=== PATIENT | male | born 2000 | race Caucasian/White ===

== ENCOUNTER 2020-11-20 15:26 | Emergency (ER) | payer SELFPAY ==
[2020-11-20 15:30] VITALS: BP 119/77; PULSE 66; RESP 20; TEMP 36.4; O2SAT 98
--- NOTE | 2020-11-20 16:23 | PC.NURSE ---
Ambulatory out of dept with steady gait. Left without being seen. States he is feeling better.
== END 2020-11-20 16:23 | disposition left against medical advice (07) ==
LOC: ANHED 16:36
DX: F41.9 Anxiety disorder, unspecified (principal)
CPT/HCPCS: 99199

== ENCOUNTER 2021-08-22 14:09 | Emergency (ER) | payer MEDICAID, SELFPAY ==
--- NOTE | ~2021-08-22 | CT_ITS ---
EXAMINATION: CT abdomen pelvis wo con DATE: 08/22/2021 15:01 INDICATION: Nausea and vomiting. Mid abdominal pain. TECHNIQUE: Computed tomography (CT) of the abdomen and pelvis was performed without intravenous contr ast. Automated exposure control and iterative reconstruction technique were employed. The dose-length product was 454.55 mGy-cm. COMPARISON: None. FINDINGS: The visualized portions of the lung bases are clear without pneumonia or pleural effusion. The heart size is normal. No pericardial effusion. The liver, gallbladder, spleen, pancreas, adrenal glands, and kidneys are normal. There is a urolithiasis. There are changes of appendectomy. There is a small bowel intussusception in the midabdomen, likely transient. There are no dilated loops of nora l. There are no pathologically enlarged lymph nodes. There is no free intraperitoneal fluid. The bone s are unremarkable. IMPRESSION: 1. Small bowel intussusception, likely transient. Reviewed, dictated and finalized at location A.
[2021-08-22 14:13] VITALS: BP 168/99; PULSE 66; RESP 14; TEMP 36.6; O2SAT 100
--- NOTE | 2021-08-22 14:49 | ED.ABDPAIN ---
HPI - Abdominal Pain General Chief Complaint: Anxiety Stated Complaint: anxiety attack Time Seen by Provider: 08/22/21 14:13 Source: patient and RN notes reviewed Mode of arrival: ambulatory Limitations: no limitations History of Present Illness MD elicited complaint: other (dry heaves and small amts of emesis.) Pertinent past history: other (untreated anxiety and occasional cyclic vomiting.) Onset (ago): day(s) (1) Pain Consistency: other (pain-free in the ED) Severity: mild Pain scale (0-10): 0 Radiation: none Migration to: no migration Exacerbating factors: nothing Relieving factors: nothing Associated symptoms: nausea and vomiting Treatments prior to arrival: other ([facility] ED meds early am 08/22/2021.) Related Data Home Medications Medication Instructions Recorded Confirmed ondansetron 4 mg disintegrating 4 tablet PO PRN PRN Nausea 08/22/21 08/22/21 tablet pantoprazole 40 mg tablet,delayed 40 tablet PO DAILY 08/22/21 08/22/21 release promethazine 25 mg rectal 25 supp RECTAL PRN PRN Nausea 08/22/21 08/22/21 suppository (Promethegan) sertraline 100 mg tablet 100 tablet PO DAILY 08/22/21 08/22/21 Allergies Allergy/AdvReac Type Severity Reaction Status Date / Time No Known Allergies Allergy Verified 08/22/21 14:23 Review of Systems Review of Systems: All systems reviewed & are unremarkable except as noted in HPI and below Constitutional: Constitutional: Reports no additional constitutional complaints Eyes: Eyes: Reports no additional eye complaints ENT: Reports system reviewed and no additional complaints, except as documented Cardiovascular: Cardiovascular: Reports no additional cardiovascular complaints Respiratory: Respiratory: Reports no additional respiratory complaints Gastrointestinal: Gastrointestinal: Denies no additional gastrointestinal complaints, Reports nausea and Reports vomiting Musculoskeletal: Musculoskeletal: Reports no additional musculoskeletal complaints Integumentary/Breasts: Skin/Breast: Reports system reviewed and no additional complaints, except as docu Neurologic: Reports system reviewed and no additional complaints, except as documented Psychiatric: Psychiatric: Reports no additional psychiatric complaints Endocrine: Endocrine: Reports no additional endocrine complaints Hematologic/Lymphatic: Hematologic/Lymphatic: Reports no additional hematologic/lymphatic complaints Allergic/Immunologic: Allergic/Immunologic: Reports no additional allergic/immunologic complaints PMFSH Past Medical History Medical History Abdominal pain Anxiety Marijuana use Social History Social History Substance use type: marijuana Exam Const: General: healthy appearing and no acute distress Nutritional Appearance: well nourished Orientation/consciousness: patient oriented x3 Limitations: no limitations Other: mild voluntary coarse tremors. HENMT: Head: normal to inspection Ears: external ears normal, TM's normal bilaterally and EAC's normal General nose exam: Normal external nose present and Normal nares present Face and sinus: normal facial exam and sinuses nontender Mouth: Yes Normal oral and palatal mucosa present and Yes moist mucous membranes Teeth and gingiva: dentition normal Throat: posterior oropharynx normal Eyes: Conjunctivae: conjunctivae normal Pupils: Equal, round and reactive pupils present EOM: EOMs intact bilaterally Neck: Neck: normal visual inspection, no lymphadenopathy and no meningeal signs Chest: Chest palpation & inspection: normal inspection of the chest Resp: Effort & Inspection: normal respiratory effort Auscultation: clear to auscultation bilaterally Cardio: Rate: regular rate Rhythm: regular rhythm GI: GI Palp: Yes Soft to palpation and No Tenderness to palpation present (GI) Auscultation: normal bowel sounds : General: Yes bladder normal to palpation and Yes no CVA tenderness Back/Spine/Pelvis: Back: no
[2021-08-22] MEDS: SODIUM CHLORIDE 0.9% IV 1,000 ML 999 ML IV CONT (15:03)
[2021-08-22] MEDS: ONDANSETRON INJ 4 MG/2 ML VIAL IV PUSH (15:03)
[2021-08-22] MEDS: PANTOPRAZOLE SODIUM IV 40 MG VIAL IV PUSH (15:04)
[2021-08-22 15:07] LABS: Basophils Absolute Auto 0.04 K/mm3 (0.00-0.10); Basophils Percent Auto 0.3 % (0.0-1.0); Hematocrit 42.4 % (40.0-54.0); Hemoglobin 14.6 g/dL (14.0-18.0); Immature Granulocyte Absolute 0.05 K/mm3 (0.00-0.00); Immature Granulocyte Percent A 0.4 % (0.0-0.0); Lymphocytes Absolute Auto 1.69 K/mm3 (1.10-4.50); Lymphocytes Percent Auto 12.1 % (18.0-42.0); Mean Corpuscular HGB Conc 34.4 g/dL (32.0-36.0); Mean Corpuscular Hemoglobin 30.3 pg (27.0-31.0); Mean Platelet Volume 10.2 fl (8.7-11.0); Monocytes Percent Auto 7.9 % (2.0-11.0); Neutrophils Percent Auto 79.3 % (50.0-70.0); Platelet Count Result 294 K/mm3 (150-420); Red Blood Count 4.82 M/mm3 (4.70-6.10); Red Cell Distribution Width 12.3 % (11.6-14.4); White Blood Count 13.9 K/mm3 (4.8-10.8)
[2021-08-22 15:09] LABS: Add Urine Microscopic? YES; Appearance Urine Clear (Clear); Bilirubin Urine Negative (Negative); Blood Urine Trace-Intact (Negative); Color Urine Yellow (Yellow); Glucose Urine UA Negative (Negative); Ketones Urine 3+ (Negative); Leukocyte Esterase Ur Negative (Negative); Nitrate Urine Negative (Negative); Protein Urine Trace (Negative); Specific Grav Ur 1.025 (1.010-1.020); Urobilinogen Urine 0.2 mg/dL (0.2-1.0)
--- NOTE | 2021-08-22 15:13 | PC.NURSE ---
pt has returned from ct, sig other at bedside. pt has ivf infusing as ordered without difficulty. will continue to monitor.
[2021-08-22 15:15] LABS: Amphetamine Screen Urine Negative (Negative); Bacteria Urine Trace /hpf; Barbiturate Screen Urine Negative (Negative); Benzodiazepines Screen Urine Negative (Negative); Cannabinoid Screen Urine Positive (Negative); Cocaine Screen Urine Negative (Negative); Methadone Screen Urine Negative (Negative); Opiate Screen Urine Negative (Negative); Phencyclidine Screen Urine Negative (Negative); RBC Urine 0-2 /hpf (0-2); Squamous Epithelial Cell Urine Rare /hpf (Few); WBC Urine None seen /hpf (0-3)
[2021-08-22 15:16] LABS: Amorphous Sediment Urine Moderate
[2021-08-22 15:22] LABS: Alanine Aminotransferase 24 U/L (16-63); Albumin Level 4.7 g/dL (3.4-5.0); Alkaline Phosphatase 78 U/L (46-116); Anion Gap 10 mmol/L (8-16); Aspartate Amino Transferase 14 U/L (15-37); Blood Urea Nitrogen 15 mg/dL (7-18); Calcium 9.6 mg/dL (8.5-10.1); Carbon Dioxide 26 mmol/L (21-32); Chloride 102 mmol/L (98-108); Estimated CRCL calculation 86 ml/min; Estimated Glomerular Filt Rate > 60; Glucose 159 mg/dL (70-99); Lipase 42 U/L (73-393); Osmolality Calculated 289 mOsm/kg (285-295); Potassium 3.7 mmol/L (3.5-5.1); Sodium 138 mmol/L (136-145)
[2021-08-22 15:24] LABS: Ethanol < 3 mg/dL (0-6)
[2021-08-22 15:25] VITALS: BP 117/65; PULSE 45; RESP 16; O2SAT 99
--- NOTE | 2021-08-22 15:29 | ECG_ITS ---
Measurements Intervals [place] Rate: 48 P: -18 TN: 166 QRS: -30 QRSD: 125 T: -14 QT: 419 QTc: 375 Interpretive Statements SINUS BRADYCARDIA LEFTWARD AXIS RIGHT VENTRICULAR CONDUCTION DELAY TALL T-WAVES, SUGGESTS HYPERKALEMIA Electronically Signed On 08-22-2021 21:39:47 CDT by Bhupendra Lino M.D.
[2021-08-22] MEDS: SODIUM CHLORIDE 0.9% IV 1,000 ML 150 ML IV CONT (16:01)
[2021-08-22 16:13] VITALS: BP 114/66; PULSE 74; RESP 18; O2SAT 98
--- NOTE | 2021-08-22 16:13 | PC.NURSE ---
pamella arceo spoke with mother at this time to inform of pt condition and plan of care. pt is awaiting return call from hospitalist at [place] at this time. ivf infusing as ordered without difficulty. will continue to monitor.
--- NOTE | 2021-08-22 16:55 | PC.NURSE ---
pt has been accepted to [facility], is aware of plan of care. pt is awaiting room availability for transfer. will continue to monitor. had to educate pt and sig other that the stretcher is made for 1 person at a time. they verbalized understanding.
[2021-08-22 16:56] VITALS: BP 130/68; PULSE 66; RESP 16; O2SAT 100
[2021-08-22 17:50] VITALS: BP 121/66; PULSE 64; RESP 16; O2SAT 98
--- NOTE | 2021-08-22 17:54 | PC.NURSE ---
pt has been assigned room 343 at [facility], awaiting return call from NICO Walsh for report at this time. pt is currently sitting on stretcher with ivf infusing as ordered without difficulty. sig other at bedside in chair. will continue to monitor.
--- NOTE | 2021-08-22 17:57 | PC.NURSE ---
ivf continuing at dispo
--- NOTE | 2021-08-22 18:25 | PC.NURSE ---
report given to pamella breen. blessing ems paged for transfer
== END 2021-08-22 18:44 | disposition short-term general hospital (02) ==
PROVIDERS: Emergency Provider Emergency Medicine
DX: K56.1 Intussusception (principal); R00.1 Bradycardia, unspecified; R11.15 Cyclical vomiting syndrome unrelated to migraine
CPT/HCPCS: 36415; 74176; 80053; 80307; 81001; 83690; 85025; 93005; 96361; 96374; 96375; 99285; C9113; J2405; J7030

== ENCOUNTER 2021-08-22 19:19 | Observation (INO) | payer MEDICAID, SELFPAY ==
--- NOTE | ~2021-08-22 | CT_ITS ---
EXAMINATION: CT abdomen pelvis wo con DATE: 08/23/2021 17:19 INDICATION: Small bowel intussusception. TECHNIQUE: Computed tomography (CT) of the abdomen and pelvis was performed without intravenous contr ast. Automated exposure control and iterative reconstruction technique were employed. The dose-length product was 280.19 mGy-cm. COMPARISON: CT abdomen and pelvis 08/22/2021 FINDINGS: The visualized portions of the lung bases are clear without pneumonia or pleural effusion. The heart size is normal. No pericardial effusion. The liver, gallbladder, spleen, pancreas, adrenal glands, and kidneys are normal. There are no dilated loops of bowel. There is oral contrast in the co bharat and distal ileum. There are changes of appendectomy. There is no intussusception. There are no pa thologically enlarged lymph nodes. There is trace pelvic ascites. The bones are unremarkable. IMPRESSION: 1. Normal bowel. Resolved intussusception. Reviewed, dictated and finalized at location A.
--- NOTE | ~2021-08-22 | XR_ITS ---
UGI-AIR CONTRAST/SMALL BOWEL INDICATION: Small bowel intussusception seen on CT examination. Evaluate for small bowel obstruction. TECHNIQUE: Serial images of the upper GI tract structures and small bowel are performed following ora l administration of water-soluble contrast. COMPARISON: CT dated 08/22/2021 FINDINGS: Contrast flowed readily through the esophagus without evidence of hernia or reflux. Gastri c contour, mucosa and motility are normal. There is a sliding hiatal hernia with gastroesophageal ref lux. The proximal duodenum is grossly unremarkable, although not well distended. Additional contrast was administered orally following upper GI examination. Patient subsequently vomited the remainder of the gastric content. Small bowel cannot be adequately evaluated for intussusception. IMPRESSION: 1: Small sliding hiatal hernia with gastroesophageal reflux. 2: Study limited for evaluation of small bowel due to patient vomiting. Reviewed, dictated and finalized at location A.
[2021-08-22 20:06] VITALS: BP 131/65; PULSE 48; RESP 18; TEMP 36.6; O2SAT 98; BMI 21.8
--- NOTE | 2021-08-22 20:15 | PM.IMHP ---
H&P: HPI History of Present Illness Date/Time: 08/22/21 20:15 Chief Complaint: Small bowel intussusception. Narrative: This is a 20-year-old male who is being directly admitted to the medical floor from the ER at the [facility] for further evaluation after he was found to have evidence of small bowel intussusception on CT. He has been quite healthy up until 2019 when he started to have intermittent episodes of abdominal pain every other month or so. He has been seen multiple times at [facility] for abdominal pain, nausea, and vomiting and he was told that his symptoms may very well be related to marijuana use. He continues to smoke marijuana however has been trying to cut back and when he has these episodes he stops smoking altogether. Hot showers or baths seemed to help with his symptoms. Recently he has had increasing stress and anxiety and he once again started having diffuse abdominal pain, nausea, vomiting, and now dry heaves. He went to [facility] last evening however it sounds as though he left against medical advice due to the weight and stat he went to [place] where he was only given oral medications which did not help. He continued to have abdominal pain, nausea, and dry heaves throughout the night and he went to [place] this morning where a CT of the abdomen and pelvis showed small-bowel intussusception, likely transient. Due to these findings transfer was initiated to [place] for consultation with surgery and Dr. Scott has accepted consult. Since arrival to [place] he has been feeling much better and he has had no further episodes of vomiting or dry heaves. He is tolerating water without issue. Last bowel movement was 2 days ago and was reportedly unremarkable. He denies fever, chills, sweats, hematemesis, melena, and hematochezia. Review of Systems Review of Systems: 12 systems were reviewed. No cold or flu symptoms. No sick contacts. Weight has remained stable at about 150 lb. No personal or family history of inflammatory bowel disease. He denies rash, joint swelling, and redness. No dysuria or other urinary symptoms. Except as documented, all other systems were reviewed and are negative. [facility] Past Medical History Medical History Anxiety Marijuana use Nicotine vapor product user Surgical History Surgical History (Updated 08/23/21 @ 00:18 by Jayne Jean PA-C) History of appendectomy History of left inguinal hernia repair Family History Family History Grandparent Heart disease Social History Social History (Updated 08/23/21 @ 00:18 by Jayne Jean PA-C) Social History: Surrogate decision maker: Ivette Lei, mother. Code status: full code. Smoking status: Current every day smoker Tobacco type: e-cigarettes/vaping Alcohol intake: never Substance use: current Substance use type: marijuana Living arrangements: with family Additional occupation/education comments: [employer] driver. Spiritual care concerns: No Meds Home Medications and Allergies Home Medications Medication Instructions Recorded Confirmed Type ondansetron 4 mg disintegrating 4 tablet PO PRN PRN Nausea 08/22/21 08/22/21 History tablet promethazine 25 mg rectal 25 supp RECTAL PRN PRN Nausea 08/22/21 08/22/21 History suppository (Promethegan) sertraline 100 mg tablet 50 tablet PO DAILY 08/22/21 08/22/21 History Allergies Allergy/AdvReac Type Severity Reaction Status Date / Time No Known Allergies Allergy Verified 08/22/21 14:23 Vital Signs Vital Signs - 24 hr 08/22/21 20:06 Temperature 97.8 F Pulse Rate 48 L Respiratory Rate 18 Blood Pressure 131/65 Pulse Oximetry 98 Exam Narrative: General: Well-developed male sitting up in bed in no distress. Weight: 71 kg. BMI: 21.8. HEENT: PERRL, EOMI. Sclerae anicteric. Tacky mucous membranes. Neck: Supple. Res
[2021-08-22] MEDS: SODIUM CHLORIDE 0.9% IV 1,000 ML 100 ML IV CONT (21:22)
--- NOTE | 2021-08-22 22:22 | PC.NURSE ---
This patient, Matt Lei, was admitted to Medical Room 343-01. Patient/family oriented to hospital policies and general routines including ID bracelet, bed and alarms, visiting hours, pain management, procedures, bathroom and other care routines, personal items, smoking policy, room service/diet, and visiting hours. Information on how to activate the Rapid Response Team has been discussed. Patient/Family are encouraged to report perceived risks to care and to ask questions if they do not understand what they are told or what they should do.
[2021-08-23 05:30] VITALS: BP 130/55; PULSE 54; RESP 16; TEMP 36.7; O2SAT 97
[2021-08-23 06:03] LABS: Hematocrit 37.4 % (42.0-52.0); Hemoglobin 12.5 g/dL (14.0-18.0); Mean Corpuscular HGB Conc 33.4 g/dl (32-36); Mean Corpuscular Volume 89.7 fl (80-100); Mean Platelet Volume 10.3 fl (7.4-10.4); Platelet Count Result 219 k/mm3 (150-375); Red Blood Count 4.17 M/mm3 (4.6-6.20); Red Cell Distribution Width 12.6 % (11.5-14.5); White Blood Count 10.8 K/mm3 (4.5-10.0)
[2021-08-23 06:24] LABS: Anion Gap 7 mmol/L (8-16); Blood Urea Nitrogen 13 mg/dL (9-20); Calcium 8.4 mg/dL (8.4-10.2); Carbon Dioxide 25 mmol/L (22-30); Chloride 107 mmol/L (98-107); Estimated CRCL calculation 94 ml/min; Estimated Glomerular Filt Rate > 60; Glucose 95 mg/dL (65-110); Potassium 3.6 mmol/L (3.4-5.0); Sodium 139 mmol/L (137-145)
[2021-08-23] MEDS: SODIUM CHLORIDE 0.9% IV 1,000 ML 100 ML IV CONT (08:48)
[2021-08-23] MEDS: SERTRALINE HCL 50 MG TABLET PO (09:47)
--- NOTE | 2021-08-23 11:41 | PM.IMPN ---
Progress Note: A&P Assessment and Plan (1) Small bowel intussusception: Code(s): K56.1 - Intussusception Status: Acute Assessment and Plan: Likely transient with no abdominal pain at this time. Dr. Scott consulted and his input is appreciated. (2) Dehydration: Code(s): E86.0 - Dehydration Status: Acute Assessment and Plan: Secondary to vomiting and poor oral intake. Continue IV fluid rehydration overnight. (3) Cyclic vomiting syndrome: Code(s): R11.15 - Cyclical vomiting syndrome unrelated to migraine Status: Acute Assessment and Plan: Suspected cyclic vomiting syndrome / cannabinoid hyperemesis syndrome. Per patient, he is trying to cut back on his marijuana use. Antiemetics available as needed. (4) Anxiety: Code(s): F41.9 - Anxiety disorder, unspecified Status: Acute Assessment and Plan: Continue sertraline. (5) Marijuana use: Code(s): F12.90 - Cannabis use, unspecified, uncomplicated Status: Acute Assessment and Plan: Concerns regarding cannabinoid hyperemesis syndrome discussed with the patient. He is making attempts to heavily cut back on his marijuana use. (6) Nicotine vapor product user: Code(s): Z72.0 - Tobacco use Status: Acute Assessment and Plan: Discussed cessation of using all vape products. Subjective Date/time seen: 08/23/21 11:41 doing well, no complaints\ feeling better Exam Narrative: General: Well-developed male sitting up in bed in no distress. Weight: 71 kg. BMI: 21.8. HEENT: PERRL, EOMI. Sclerae anicteric. Tacky mucous membranes. Neck: Supple. Respiratory: Lungs are clear to auscultation bilaterally. Cardiovascular: Regular rate and rhythm with S1-S2. Gastrointestinal: Abdomen is soft, flat, nontender, and nondistended with positive bowel sounds. Skin: Warm and dry. No rash or lesions on limited exam. Extremities: No cyanosis, clubbing, or edema. Radial and pedal pulses intact. Neurological: Alert. Cranial nerves 2-12 are grossly intact. No gross focal deficits to casual conversation. Psychiatric: Appropriate mood and affect. Objective Data Vital Signs Vital Signs: Vital Signs - 24 hr 08/22/21 20:06 08/22/21 21:15 08/23/21 05:30 Temperature 97.8 F 98.1 F Pulse Rate 48 L 54 L Respiratory Rate 18 16 Blood Pressure 131/65 130/55 L Pulse Oximetry 98 97 Oxygen Delivery Room Air Intake/Output Intake/Output: Intake & Output 08/20/21 08/21/21 08/22/21 08/23/21 23:59 23:59 23:59 23:59 Intake Total 550 1500 Output Total 200 Balance 350 1500 Meds/Results Medications: Active Medications Generic Name Dose Route Start Last Admin Trade Name Freq PRN Reason Stop Dose Admin Sodium Chloride 1,000 mls @ 100 mls/hr 08/22/21 20:15 08/23/21 08:48 Normal Saline Iv IV CONT 100 mls/hr .Q10H ERICA Administration Ondansetron HCl 4 mg 08/23/21 08:10 Ondansetron Hcl Odt 4 Mg Tablet PO PRN PRN Nausea Sertraline HCl 50 mg 08/23/21 09:00 08/23/21 09:47 Sertraline Hcl 50 Mg Tablet PO 50 mg DAILY ERICA Administration Labs Labs: Laboratory Results - last 24 hr 08/23/21 08/23/21 05:22 05:22 WBC 10.8 H RBC 4.17 L Hgb 12.5 L Hct 37.4 L MCV 89.7 MCH 30.0 MCHC 33.4 RDW 12.6 Plt Count 219 MPV 10.3 Sodium 139 Potassium 3.6 Chloride 107 Carbon Dioxide 25 Anion Gap 7 L BUN 13 Creatinine 1.10 Estim Creat Clear Calc 94 Estimated GFR > 60 Glucose 95 Calcium 8.4 Magnesium 2.0 Quality VTE Prophylaxis VTE prophylaxis: mechanical ordered
[2021-08-23] MEDS: LORazepam INJ (*CRX) 2 MG/ML VIAL 1 MG IV PUSH (12:22)
[2021-08-23] MEDS: ONDANSETRON HCL ODT 4 MG TABLET PO ×2 (12:28→16:15)
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
[2021-08-23 14:00] VITALS: BP 137/71; PULSE 65; RESP 20; TEMP 36.6; O2SAT 99
--- NOTE | 2021-08-23 14:19 | PM.CNGS ---
Assessment and Plan Assessment and plan (1) Small bowel intussusception: Code(s): K56.1 - Intussusception Status: Acute Assessment and Plan: CT reviewed and discussed with the patient and his family. He was found to have a small bowel intussusception, which is likely transient. His abdominal exam is benign and he is not complaining of any abdominal pain. His vomiting seems more likely related to the below mentioned reasons. Gastrografin UGI/SBFT ordered, and this was inconclusive because he vomited the contrast prior to completing the study. Will keep him NPO for now with IV fluids and antiemetics. Will repeat a CT scan of the abdomen and pelvis tomorrow morning to re-evaluate. Discussed with the family that this is typically transient and does not require surgery, but will continue to monitor. (2) Cyclic vomiting syndrome: Code(s): R11.15 - Cyclical vomiting syndrome unrelated to migraine Status: Acute Assessment and Plan: Suspect that he is primarily dealing with cyclic vomiting syndrome. Recommended cutting back his marijuana use. Continue IV fluids and antiemetics as needed. See plan above regarding intussusception. (3) Dehydration: Code(s): E86.0 - Dehydration Status: Acute Assessment and Plan: Improving with IV fluid hydration. (4) Marijuana use: Code(s): F12.90 - Cannabis use, unspecified, uncomplicated Status: Acute Assessment and Plan: Strongly encouraged cessation, which he reportedly has been working towards. This could cause cause cannabis hyperemesis syndrome, which we discussed. (5) Nicotine vapor product user: Code(s): Z72.0 - Tobacco use Status: Acute Assessment and Plan: Encouraged to stop using any vaping products. (6) Anxiety: Code(s): F41.9 - Anxiety disorder, unspecified Status: Acute Plan I have discussed the patient's case and plan of care with Dr. Scott. Thank you for allowing us to see the patient in consultation and we will continue to follow along with you. History of Present Illness Consult details Consult date: 08/23/21 Reason for consult: other (Small bowel intussusception) Requesting physician: Jayne Jean, JANINE Narrative: This is a 20-year-old male who was directly admitted to [facility] last night from [facility]. He has been in a good state of health until 2 years ago. He reports these intermittent episodes of having an attack where he has tremors, tenses up, and begins vomiting. He does admit to this feeling like an anxiety or panic attack. His girlfriend and father are at the bedside and help provide history with his permission. These episodes happen about 2-3 times per month at least. He has been seen at multiple hospitals in the ER for these episodes. He has been told this could be due to his marijuana use, and subsequently has been trying to cut back on how much he smokes. He still reports smoking marijuana a few times daily, along with vaping. Two days ago, after eating a few bites of lunch, he felt an attack coming on and began to tense up and tremor. He then vomited multiple times. His girlfriend took him to an ER in [place]. He was given medication, symptoms improve, and was eventually discharged the same day. She states he fell asleep when getting home, and woke up 1.5 hours later with another attack , the same symptoms. They then took him to [place] ER, where he was given some medication and his symptoms again improved. She reports he fell asleep again at home and soon after he ended up having another attack with vomiting, therefore they brought him into [facility] ER for evaluation yesterday. CT abdomen/pelvis showed small bowel intussusception, likely transient. He was then directly admitted to [facility]. Our service was consulted. Gastrografin UGI small bowel follow through was ordered this morning. This showed a small sliding hiatal hernia with GERD, but the study was unable to be co
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
[2021-08-23 19:33] VITALS: BP 105/48; PULSE 61; RESP 18; TEMP 37.3; O2SAT 99
[2021-08-24] MEDS: SODIUM CHLORIDE 0.9% IV 1,000 ML 100 ML IV CONT ×2 (02:22→12:34)
[2021-08-24 06:00] VITALS: BP 108/55; PULSE 54; RESP 16; TEMP 36.2; O2SAT 99
[2021-08-24] MEDS: ONDANSETRON HCL ODT 4 MG TABLET PO (06:48)
[2021-08-24] MEDS: LORazepam INJ (*CRX) 2 MG/ML VIAL 0.5 MG IV PUSH (07:43)
[2021-08-24] MEDS: SERTRALINE HCL 50 MG TABLET PO (08:05)
[2021-08-24] MEDS: hydrOXYzine HCL 25 MG TABLET PO ×2 (08:05→17:46)
--- NOTE | 2021-08-24 10:57 | PM.IMPN ---
Progress Note: A&P Assessment and Plan (1) Small bowel intussusception: Code(s): K56.1 - Intussusception Status: Acute Assessment and Plan: Likely transient with no abdominal pain at this time. Appreciate surgical and GI input. No further recommendations at this time. (2) Dehydration: Code(s): E86.0 - Dehydration Status: Acute Assessment and Plan: Secondary to vomiting and poor oral intake. Continue IV fluid rehydration overnight. (3) Cyclic vomiting syndrome: Code(s): R11.15 - Cyclical vomiting syndrome unrelated to migraine Status: Acute Assessment and Plan: Suspected cyclic vomiting syndrome / cannabinoid hyperemesis syndrome. Per patient, he is trying to cut back on his marijuana use. Antiemetics available as needed. (4) Anxiety: Code(s): F41.9 - Anxiety disorder, unspecified Status: Acute Assessment and Plan: Continue sertraline. (5) Marijuana use: Code(s): F12.90 - Cannabis use, unspecified, uncomplicated Status: Acute Assessment and Plan: Concerns regarding cannabinoid hyperemesis syndrome discussed with the patient. He is making attempts to heavily cut back on his marijuana use. (6) Nicotine vapor product user: Code(s): Z72.0 - Tobacco use Status: Acute Assessment and Plan: Discussed cessation of using all vape products. (7) Seizure: Code(s): R56.9 - Unspecified convulsions Status: Acute Assessment and Plan: Possible seizure. Neurology has been consulted. Given the characteristics of the episode low suspicion for seizure disorder. Subjective Date/time seen: 08/24/21 10:57 Had episode again this morning. Started with abdominal cramping and progressed to muscle spasm and mild altered mental status. This episode were short-lived. Episode was similar to what happened yesterday except patient was more altered yesterday question this is seizure although it does not really fit characteristics of seizure. Neurology is to see the patient today Exam Narrative: General: Well-developed male sitting up in bed in no distress. Weight: 71 kg. BMI: 21.8. HEENT: PERRL, EOMI. Sclerae anicteric. Tacky mucous membranes. Neck: Supple. Respiratory: Lungs are clear to auscultation bilaterally. Cardiovascular: Regular rate and rhythm with S1-S2. Gastrointestinal: Abdomen is soft, flat, nontender, and nondistended with positive bowel sounds. Skin: Warm and dry. No rash or lesions on limited exam. Extremities: No cyanosis, clubbing, or edema. Radial and pedal pulses intact. Neurological: Alert. Cranial nerves 2-12 are grossly intact. No gross focal deficits to casual conversation. Psychiatric: Appropriate mood and affect. Objective Data Vital Signs Vital Signs: Vital Signs - 24 hr 08/23/21 14:00 08/23/21 19:33 08/23/21 20:00 Temperature 97.8 F 99.1 F Pulse Rate 65 61 Respiratory Rate 20 18 Blood Pressure 137/71 105/48 L Pulse Oximetry 99 99 Oxygen Delivery Room Air 08/24/21 06:00 08/24/21 07:54 Temperature 97.1 F L Pulse Rate 54 L Respiratory Rate 16 Blood Pressure 108/55 L Pulse Oximetry 99 Oxygen Delivery Room Air Intake/Output Intake/Output: Intake & Output 08/21/21 08/22/21 08/23/21 08/24/21 23:59 23:59 23:59 23:59 Intake Total 550 2500 Output Total 955 712 5798 Balance 350 1999 -2100 Meds/Results Medications: Active Medications Generic Name Dose Route Start Last Admin Trade Name Freq PRN Reason Stop Dose Admin Hydroxyzine HCl 25 mg 08/24/21 09:00 08/24/21 08:05 Hydroxyzine Hcl 25 Mg Tablet PO 25 mg BID ERICA Administration Sodium Chloride 1,000 mls @ 100 mls/hr 08/22/21 20:15 08/24/21 02:22 Normal Saline Iv IV CONT 100 mls/hr .Q10H ERICA Administration Ondansetron HCl 4 mg 08/23/21 08:10 08/24/21 06:48 Ondansetron Hcl Odt 4 Mg Tablet PO 4 mg PRN PRN Ad
--- NOTE | 2021-08-24 11:23 | PM.PNGS ---
Progress Note: A&P Assessment and Plan (1) Small bowel intussusception: Code(s): K56.1 - Intussusception Status: Acute Assessment and Plan: No intussusception on CT from yesterday afternoon. Patient unable to tolerate small bowel series but doubt there is a surgical problem as the source of his recurrent episodes of vomiting. Will sign off. Call if we can be of any further assistance. (2) Cyclic vomiting syndrome: Code(s): R11.15 - Cyclical vomiting syndrome unrelated to migraine Status: Acute Assessment and Plan: Plan per hospitalist service and GI. Subjective Subjective Date/Time Seen: 08/24/21 11:23 Patient reports: feels better, pain is less (No abdominal pain this morning), vomiting (Several episodes of vomiting yesterday but not nauseated or vomiting this morning) and afebrile Review of Systems Review of Systems: All systems reviewed & are unremarkable except as noted in HPI and below Constitutional: Constitutional: Denies chills and Denies fever(s) Cardiovascular: Cardiovascular: Denies chest pain, Denies diaphoresis, Denies dyspnea and Denies paroxysmal nocturnal dyspnea Respiratory: Respiratory: Denies chest congestion, Denies cough and Denies dyspnea Gastrointestinal: Gastrointestinal: Reports as per HPI, Denies abdominal pain and Denies nausea Integumentary/Breasts: Skin/Breast: Denies lesions and Denies rash Exam Const: General: comfortable and no acute distress; No confusion Orientation/consciousness: patient oriented x3 and No confusion GI: Inspection: normal to inspection and non-distended GI Palp: Yes Soft to palpation, No Tenderness to palpation present (GI), No Guarding due to palpation present (GI), Yes No hepatosplenomegaly present, No Hernia present, No Palpable mass present and No Rebound tenderness present Auscultation: normal bowel sounds Neuro: General: patient oriented x3, no focal motor deficits and No confusion Extrem: General: no calf tenderness and no edema Psych: Affect: normal affect Insight: Good insight present (Psych) Judgement: Good judgement present (Psych) Objective Data Vital Signs Vital Signs: Vital Signs - 24 hr 08/23/21 14:00 08/23/21 19:33 08/23/21 20:00 Temperature 36.6 C 37.3 C Pulse Rate 65 61 Respiratory Rate 20 18 Blood Pressure 137/71 105/48 L Pulse Oximetry 99 99 Oxygen Delivery Room Air 08/24/21 06:00 08/24/21 07:54 Temperature 36.2 C L Pulse Rate 54 L Respiratory Rate 16 Blood Pressure 108/55 L Pulse Oximetry 99 Oxygen Delivery Room Air Intake/Output Intake/Output: Intake & Output 08/21/21 08/22/21 08/23/21 08/24/21 23:59 23:59 23:59 23:59 Intake Total 550 2500 Output Total 008 843 0028 Balance 350 1999 -2099 Meds/Results Medications: Active Medications Generic Name Dose Route Start Last Admin Trade Name Freq PRN Reason Stop Dose Admin Hydroxyzine HCl 25 mg 08/24/21 09:00 08/24/21 08:05 Hydroxyzine Hcl 25 Mg Tablet PO 25 mg BID ERICA Administration Sodium Chloride 1,000 mls @ 100 mls/hr 08/22/21 20:15 08/24/21 02:22 Normal Saline Iv IV CONT 100 mls/hr .Q10H ERICA Administration Ondansetron HCl 4 mg 08/23/21 08:10 08/24/21 06:48 Ondansetron Hcl Odt 4 Mg Tablet PO 4 mg PRN PRN Administration Nausea Sertraline HCl 50 mg 08/23/21 09:00 08/24/21 08:05 Sertraline Hcl 50 Mg Tablet PO 50 mg DAILY ERICA Administration Radiology Results: ITS Impressions Upper GI Series 08/23/21 12:10 IMPRESSION: 1: Small sliding hiatal hernia with gastroesophageal reflux. 2: Study limited for evaluation of small bowel due to patient vomiting. Abdomen/Pelvis CT 08/23/21 17:26 IMPRESSION: 1. Normal bowel. Resolved intussusception. Imaging Attestation: I personally reviewed and interpreted this imaging study as follows: (CT scan abdomen and pelvis from yesterday) My impression: Normal appearance Radiologist's impress
--- NOTE | 2021-08-24 12:16 | WPDGIPROGNO ---
Progress Note: A&P Assessment and Plan (1) Cyclic vomiting syndrome: Code(s): R11.15 - Cyclical vomiting syndrome unrelated to migraine Status: Acute Assessment and Plan: patient has recurrent nausea vomiting. This appears be related to both his anxiety as well as his marijuana use. Marijuana avoidance strongly encouraged. Psychiatric referral encouraged. Advance diet as tolerated. Brief use of antiemetics may be beneficial. Antacids may also be of some benefit. (2) Marijuana use: Code(s): F12.90 - Cannabis use, unspecified, uncomplicated Status: Acute Assessment and Plan: Marijuana use appears to be related to his recurrent cyclical vomiting. He will need to stop this. Abstinence from marijuana strongly encouraged given its association with cyclical Vomiting syndrome. (3) Anxiety: Code(s): F41.9 - Anxiety disorder, unspecified Status: Acute Assessment and Plan: Patient has rather profound significant anxiety disorder he appears to have panic attacks. Psychiatric consultation strongly encouraged this likely contribute somewhat to his dry heaving and nausea. (4) Small bowel intussusception: Code(s): K56.1 - Intussusception Status: Acute Assessment and Plan: Agree with surgery intussusceptions probably brief entrance and and not related to recurrent nausea vomiting. Small-bowel follow-through can be arranged electively as an outpatient after discharge. Or when symptoms subside. Subjective Date/time seen: 08/24/21 12:16 Patient continues to have nausea and anxiety. Somewhat more calmed the this morning. Review of Systems Review of Systems: Review of systems noncontributory. Exam Narrative: Physical exam reveals Vital Signs be stable. HEENT exam reveals no icterus. Lungs are clear. Heart without murmur. Abdomen is soft flat nontender. Objective Data Vital Signs Vital Signs: Vital Signs - 24 hr 08/23/21 14:00 08/23/21 19:33 08/23/21 20:00 Temperature 97.8 F 99.1 F Pulse Rate 65 61 Respiratory Rate 20 18 Blood Pressure 137/71 105/48 L Pulse Oximetry 99 99 Oxygen Delivery Room Air 08/24/21 06:00 08/24/21 07:54 Temperature 97.1 F L Pulse Rate 54 L Respiratory Rate 16 Blood Pressure 108/55 L Pulse Oximetry 99 Oxygen Delivery Room Air Intake/Output Intake/Output: Intake & Output 05/31/22 08/22/21 08/23/21 08/24/21 23:59 23:59 23:59 23:59 Intake Total 550 2500 Output Total 446 416 0294 Balance 350 1999 -2099 Meds/Results Medications: Active Medications Generic Name Dose Route Start Last Admin Trade Name Freq PRN Reason Stop Dose Admin Hydroxyzine HCl 25 mg 08/24/21 09:00 08/24/21 08:05 Hydroxyzine Hcl 25 Mg Tablet PO 25 mg BID ERICA Administration Sodium Chloride 1,000 mls @ 100 mls/hr 08/22/21 20:15 08/24/21 02:22 Normal Saline Iv IV CONT 100 mls/hr .Q10H ERICA Administration Ondansetron HCl 4 mg 08/23/21 08:10 08/24/21 06:48 Ondansetron Hcl Odt 4 Mg Tablet PO 4 mg PRN PRN Administration Nausea Sertraline HCl 50 mg 08/23/21 09:00 08/24/21 08:05 Sertraline Hcl 50 Mg Tablet PO 50 mg DAILY ERICA Administration Radiology Results: ITS Impressions Upper GI Series 08/23/21 12:10 IMPRESSION: 1: Small sliding hiatal hernia with gastroesophageal reflux. 2: Study limited for evaluation of small bowel due to patient vomiting. Abdomen/Pelvis CT 08/23/21 17:26 IMPRESSION: 1. Normal bowel. Resolved intussusception. Amg Follow-up Billing Inpatient Follow-up [id number] [facility]
--- NOTE | 2021-08-24 13:04 | WPDNEURCNPN ---
Assessment and Plan Assessment and plan (1) Seizure: Code(s): R56.9 - Unspecified convulsions Status: Acute Plan awaiting the EEG if the study is normal he will be discharged until and unless other problem arises Additional Plan EEG Consult date: 08/24/21 Time Seen: 11:00 HPI: Matt Lei is a 20 year old male is being seen for the neurological status. Patient was brought to the hospital with the complaints of anxiety in ambulatory condition but documented dry heaves and small amounts of emesis and history of taking sertraline 100 mg daily in addition to other medication to suppress the vomiting, initial vital signs were normal except blood pressure 168/99 routine lab was negative except the urine positive for cannabinoids and glucose of 159 since admission patient has been treated for the small bowel intussusception with dehydration and cyclical vomiting his neurological examination has remained nonfocal, patient has been seen by the plaster lather with the diagnosis of cyclical vomiting syndrome which has been attributed to the marijuana other pertinent investigations include CT scan of the abdomen documenting small bowel intussusception likely transient and a CT of the abdomen showing small sliding hiatal hernia with GE reflex also CT of the abdomen clearing the intussusception, patient is still waiting for the EEG because of the family's request as well PMFSH Past Medical History Medical History Anxiety Marijuana use Nicotine vapor product user Surgical History Surgical History History of appendectomy History of left inguinal hernia repair Family History Family History Grandparent Heart disease Social History Social History Social History: Surrogate decision maker: Ivette Lei, mother. Code status: full code. 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 Spiritual care concerns: No Meds Home Medications and Allergies Home Medications Medication Instructions Recorded Confirmed Type ondansetron 4 mg disintegrating 4 tablet PO PRN PRN Nausea 08/22/21 08/22/21 History tablet promethazine 25 mg rectal 25 supp RECTAL PRN PRN Nausea 08/22/21 08/22/21 History suppository (Promethegan) sertraline 100 mg tablet 50 tablet PO DAILY 08/22/21 08/22/21 History Allergies Allergy/AdvReac Type Severity Reaction Status Date / Time No Known Allergies Allergy Verified 08/22/21 14:23 Vital Signs Vital Signs - 24 hr 08/23/21 14:00 08/23/21 19:33 08/23/21 20:00 Temperature 36.6 C 37.3 C Pulse Rate 65 61 Respiratory Rate 20 18 Blood Pressure 137/71 105/48 L Pulse Oximetry 99 99 Oxygen Delivery Room Air 08/24/21 06:00 08/24/21 07:54 Temperature 36.2 C L Pulse Rate 54 L Respiratory Rate 16 Blood Pressure 108/55 L Pulse Oximetry 99 Oxygen Delivery Room Air Exam Const: General: cooperative, healthy appearing, comfortable and no acute distress Nutritional Appearance: average body habitus Limitations: no limitations HENMT: Head: normal to inspection and normocephalic Ears: hearing grossly normal bilaterally General nose exam: Normal external nose present Face and sinus: normal facial exam Eyes: General: appearance normal, both eyes and all related structures Visual Mock: normal visual mock by confrontation Alignment and Position: alignment normal Periorbital: periorbital findings normal Eyelids: eyelids normal Conjunctivae: conjunctivae normal Sclera: sclerae normal Pupils: Equal, round and reactive pupils present EOM: EOMs intact bilaterally Neck: Neck: full ROM Resp: Effor
[2021-08-24 14:00] VITALS: BP 145/68; PULSE 66; RESP 20; TEMP 36.7; O2SAT 100
[2021-08-24 20:30] VITALS: PULSE 55; RESP 18; O2SAT 97
[2021-08-24 21:29] VITALS: BP 140/88; PULSE 55; RESP 18; TEMP 36.7; O2SAT 97
[2021-08-25 04:44] VITALS: BP 117/76; PULSE 53; RESP 16; TEMP 36.2; O2SAT 98
[2021-08-25] MEDS: SODIUM CHLORIDE 0.9% IV 1,000 ML 100 ML IV CONT (05:55)
[2021-08-25] MEDS: hydrOXYzine HCL 25 MG TABLET PO (09:05)
[2021-08-25] MEDS: SERTRALINE HCL 50 MG TABLET PO (09:05)
--- NOTE | 2021-08-25 10:47 | PM.DS ---
DS: Admitting Diagnosis Discharge Date August 25, 2021 Admitting Diagnosis Possible intussusception. DS: Discharge Diagnosis Discharge Diagnosis (1) Small bowel intussusception: Code(s): K56.1 - Intussusception Status: Acute Assessment and Plan: Likely transient with no abdominal pain at this time. Appreciate surgical and GI input. No further recommendations at this time. fu gi as needed (2) Dehydration: Code(s): E86.0 - Dehydration Status: Acute Assessment and Plan: resolved (3) Cyclic vomiting syndrome: Code(s): R11.15 - Cyclical vomiting syndrome unrelated to migraine Status: Acute Assessment and Plan: Suspected cyclic vomiting syndrome / cannabinoid hyperemesis syndrome. Per patient, he is trying to cut back on his marijuana use. Antiemetics available as needed. (4) Anxiety: Code(s): F41.9 - Anxiety disorder, unspecified Status: Acute Assessment and Plan: Continue sertraline. fu pcp (5) Marijuana use: Code(s): F12.90 - Cannabis use, unspecified, uncomplicated Status: Acute Assessment and Plan: Concerns regarding cannabinoid hyperemesis syndrome discussed with the patient. He is making attempts to heavily cut back on his marijuana use. (6) Nicotine vapor product user: Code(s): Z72.0 - Tobacco use Status: Acute Assessment and Plan: Discussed cessation of using all vape products. (7) Seizure: Code(s): R56.9 - Unspecified convulsions Status: Acute Assessment and Plan: Possible seizure. Neurology has been consulted. Given the characteristics of the episode low suspicion for seizure disorder. DS: Summary Hospital Course Hospital Course: Patient was admitted for possible intussusception with abdominal cramping and nausea vomiting. Further evaluation revealed this is probably transient if at all present and not likely the source of his issue. As have cyclical vomiting syndrome from chronic marijuana use. He can follow up with GI as an outpatient for any further recommendations for this but this is symptoms have subsequently resolved. Time Spent with Patient Time attestation: Total time spent providing and/or coordinating discharge services: Exam Narrative: General: Well-developed male sitting up in bed in no distress. Weight: 71 kg. BMI: 21.8. HEENT: PERRL, EOMI. Sclerae anicteric. Tacky mucous membranes. Neck: Supple. Respiratory: Lungs are clear to auscultation bilaterally. Cardiovascular: Regular rate and rhythm with S1-S2. Gastrointestinal: Abdomen is soft, flat, nontender, and nondistended with positive bowel sounds. Skin: Warm and dry. No rash or lesions on limited exam. Extremities: No cyanosis, clubbing, or edema. Radial and pedal pulses intact. Neurological: Alert. Cranial nerves 2-12 are grossly intact. No gross focal deficits to casual conversation. Psychiatric: Appropriate mood and affect. Discharge Plan Discharge Attending physician on discharge: James Lane Consulting providers: Antonio Navarro ; Bijan Boucher Discharging Clinician: James Lane Patient Disposition: Home, Self-Care Activity: no preference Diet: as tolerated Patient Instructions: Antibiotic Form, How to Stop Smoking (GEN) Stand Alone Forms: General Discharge Information Follow-up/Referrals: Antonio Navarro MD [Physician] - Bijan Boucher MD [Physician] - Orquidea,MD Yogi [Primary Care Provider] - Discharge Medications: Continued promethazine [Promethegan] 25 mg suppository 25 supp RECTAL PRN PRN (Reason: Nausea) sertraline 100 mg tablet 50 tablet PO DAILY ondansetron 4 mg tablet,disintegrating 4 tablet PO PRN PRN (Reason: Nausea) Date of admission: 08/22/21 19:19 Primary Care Provider: SylviaYogi Admitting Provider: Darrion Jason Attending physician on admission: Shaan Jason
--- NOTE | 2021-08-25 14:10 | P.NEURO_ITS ---
Neurology EEG Report General Information Date of Study: 08/24/21 TEST eeg DIAGNOSIS possible pseudoseizures CONDITION OF RECORDING continuously moving throughout the EEG reported that he has ADHD EEG NUMBER [id number] CLINICAL HISTORY possible pseudoseizures EEG DESCRIPTION Basic resting occipital frequency consists of moderate amount of fairly well organized low to medium voltage 8 to 9 hertz per 2nd alpha admixed with low- voltage 15 to 21 hertz per 2nd beta. In drowsiness low-voltage beta activity seen diffusely. Multiple movement artifacts seen throughout the tracing. Non paroxysmal. Nonfocal. Nonlateralizing. IMPRESSION No significant abnormalities noted
[2021-08-25 14:25] VITALS: BP 112/68; PULSE 62; RESP 16; TEMP 36.4; O2SAT 99
== END 2021-08-25 15:00 | disposition home or self-care (01) ==
PROVIDERS: Physician Assistant; Admitting Provider Internal Medicine; PCP Family Medicine; Visit Provider Chiropractor
DX: K56.1 Intussusception (principal); E86.0 Dehydration; R11.15 Cyclical vomiting syndrome unrelated to migraine; F41.9 Anxiety disorder, unspecified; F17.290 Nicotine dependence, other tobacco product, uncomplicated; F12.90 Cannabis use, unspecified, uncomplicated
CPT/HCPCS: 36415; 74176; 74240; 74248; 80048; 83735; 85027; 95816; 96360; 96361; 96374; A9270; G0378; G0379; J2060; J7030

== ENCOUNTER 2022-03-17 23:46 | Emergency (ER) | payer OTHER, SELFPAY ==
[2022-03-17 23:50] VITALS: BP 169/99; PULSE 81; RESP 18; TEMP 36.7; O2SAT 98
--- NOTE | 2022-03-18 00:23 | ED.ANXIETY ---
HPI - Anxiety General Chief Complaint: Anxiety Stated Complaint: anxiety attack Time Seen by Provider: 03/18/22 00:04 History of Present Illness HPI narrative: 21-year-old male history of anxiety, cyclical vomiting syndrome and transient intussusception presents to the emergency room for evaluation of anxiety attack. Patient regularly takes sertraline, and states that he had an anxiety attack earlier today when faced with not being able to spend time with both of his parents [place]. Patient states his primary care physician gives him promethazine suppositories when he has an anxiety attack. Reports no resolution from his anxiety, but does state that he gets sleepy and his anxiety eventually resolves. Patient states he also uses marijuana regularly, which sometimes alleviates things of anxiety. States today he had an emesis at lunchtime and there was some blood tinge sputum and has vomited. Denies any abdominal pain. On evaluation patient is accompanied by his father and his girlfriend who are providing the majority of the history. Related Data Home Medications Medication Instructions Recorded Confirmed ondansetron 4 mg disintegrating 4 tablet PO PRN PRN Nausea 08/22/21 08/22/21 tablet promethazine 25 mg rectal 25 supp RECTAL PRN PRN Nausea 08/22/21 08/22/21 suppository (Promethegan) sertraline 100 mg tablet 50 tablet PO DAILY 08/22/21 08/22/21 Allergies Allergy/AdvReac Type Severity Reaction Status Date / Time No Known Allergies Allergy Verified 08/28/21 14:12 Review of Systems Review of Systems: CONSTITUTIONAL: Denies fever, chills, or sweats. EYES: Denies visual changes, redness, or discharge. ENT: Denies rhinorrhea, congestion, sore throat, or otalgia. CARDIOVASCULAR: Denies chest pain, palpitations, or edema. RESPIRATORY: Denies cough or dyspnea. GASTROINTESTINAL: Denies abdominal pain, nausea, vomiting, or diarrhea. GENITOURINARY: Denies dysuria or hematuria. SKIN: Denies rash or itching. MUSCULOSKELETAL: Denies back pain, joint pain, or myalgia. NEUROLOGIC: Denies headache, numbness, dizziness, or weakness. PSYCHIATRIC: Reports anxiety. [facility] Past Medical History Medical History Anxiety Marijuana use Nicotine vapor product user Surgical History Surgical History History of appendectomy History of left inguinal hernia repair Family History Family History Grandparent Heart disease Social History Social History Social History: Surrogate decision maker: Ivette Lei, mother. Code status: full code. Smoking status: Current every day smoker Tobacco type: e-cigarettes/vaping Alcohol intake: never Substance use: current Substance use type: marijuana Additional occupation/education comments: [employer] driver. Spiritual care concerns: No Exam Narrative: GENERAL: Well-appearing, well-nourished, no physical limitations, and in no acute distress. HEAD: Normocephalic, atraumatic. EYES: Conjunctivae normal, PERRLA and EOMI. CHEST: Clear to auscultation. No respiratory distress. No wheezes rales or rhonchi. HEART: Regular rate and rhythm. No murmur heard. Normal peripheral pulses. EXTREMITIES: Normal range of motion. No edema. No clubbing or cyanosis SKIN: Warm, dry, no rash. No noted wounds NEURO: No focal deficits. Alert and oriented x3. MAEW. CN's II-XI intact bilaterally, normal gait PSYCH: Cooperative. Somnolent Course Course Emergency Course: 0200: Had a lengthy discussion with the patient and his family about his anxiety. According to the patient, he gets anxious very quickly and it causes him to lock up and then become nauseated. This is the reason why he is taking the Phenergan as it helps his nausea but then makes him sleepy and resolves his anxiety. Explained to patient that this is not the
[2022-03-18 02:03] VITALS: PULSE 90; RESP 20; O2SAT 98
== END 2022-03-18 02:05 | disposition home or self-care (01) ==
PROVIDERS: Emergency Provider Nurse Practitioner Family; PCP Family Medicine
DX: F41.9 Anxiety disorder, unspecified (principal)
CPT/HCPCS: 99283